=== PATIENT | female | born 1980 | race Caucasian/White ===

== ENCOUNTER 2017-06-04 08:54 | Emergency (ER) | payer OTHER ==
[~2017-06-04] VITALS: Ht 160 cm; Wt 70.3 kg
[~2017-06-04 08:54] MED LIST: ALPR-1 PO; IBUP600T22 PO; IBUP800T37 PO; KET10 PO; LOR5 PO; MULT1CAP41 PO; NAPR500T75 PO; OXYC1TAB54 PO; PAN20 PO; PENI-24 PO; PER PO; TRA50 PO; TRAM-627 PO; Work Note
--- NOTE | 2017-06-04 09:08 | ER Report ---
History and Physical Time Seen By MD: 09:07 Hx. of Stated Complaint: DIZZINESS, STRESS, AND HEADACHE. REPORTS THAT SHE HIT HER HEAD ON SUNDAY AND THEN STARTED HAVING THIS SYMPTOMS. HPI/ROS CHIEF COMPLAINT: headache and jaw pain after injury. HISTORY OF PRESENT ILLNESS: This is a 37 year old female. She fell and hit her right religion on a dresser. Has had headache, nausea and dizziness since then. She has some pain in jaw and religion, worsens with opening mouth or chewing. Also with cough, wheezing and shortness of breath. Congestion in nasal areas. No fevers or shills. No chest pain, but feels tight. No near syncope. No vertigo , more of an off balance feeling. Cough making the headache worse. Has some bruising on her arm where she says her tried to catch her. See nursing details for safety questions. Allergies: Coded Allergies: No Known Allergies (Verified Allergy, Mild, 06/04/17) Home Meds Active Scripts Guaifenesin/Codeine (GUAIFENESIN-CODEINE SYRUP) 5 Ml Syrp, 5 ML PO Q6H Y for COUGH, #120 ML 0 Refills Prov:JOMRA CRUZ MD 06/04/17 Discontinued Reported Medications Ibuprofen (IBUPROFEN) 800 Mg Tablet, 1 TAB PO BID, TAB 04/02/17 Discontinued Scripts Alprazolam 0.25 Mg Tab (XANAX 0.25 MG TAB) 0.25 Mg Tablet, 1 TAB PO TID Y for ANXIETY, #14 TAB Prov:FABIENNE MAYER MD 05/28/17 [Work Note] No Conflict Check Patient seen in the office today. May return to work on 04/04/17. Prov:TRUONG KAUFMAN DNP, FNP-BC 04/02/17 Penicillin V Potassium 500 Mg Tab (PENICILLIN V POTASSIUM 500 MG TAB) 500 Mg Tablet, 1 TAB PO BID, #20 TAB 0 Refills Prov:TRUONG KAUFMAN DNP, FNP-BC 04/02/17 Reviewed Nurses Notes: Yes Hx Smoking: Yes (1ppd) Smoking Status: Current: Every Day Smoker Hx Substance Use Disorder: No Hx Alcohol Use: No Constitutional Vital Sign - Last 24 Hours 06/04/17 06/04/17 06/04/17 06/04/17 08:58 09:00 09:30 09:30 Temp 97.9 Pulse 120 120 107 Resp 20 16 B/P (MAP) 124/98 Pulse Ox 90 95 97 O2 Delivery Room Air Room Air 06/04/17 06/04/17 06/04/17 06/04/17 09:30 09:36 10:00 10:30 Pulse 106 109 108 104 Resp 16 B/P (MAP) 113/79 (90) 124/75 (91) 111/60 (77) Pulse Ox 90 94 93 Physical Exam General Appearance: The patient is alert. No acute distress. Eyes: Pupils are equal, round. Reactive to light. No pallor, injection or icterus. Extraocular movements are intact. ENT: Mucous membranes are moist. Normal oral mucosa. Posterior oropharynx is normal. Normal tympanic membranes and canals. Neck: Supple and non tender. No lymphadenopathy. Respiratory: Breathing easily and unlabored. Lungs with wheezing throughout on expiration. Cardiovascular: Regular rate and rhythm. No murmurs, gallops or rubs. Normal capillary refill. Gastrointestinal: Abdomen is soft and non tender. Nondistended. Normal active bowel sounds. Neurological: Alert and oriented x3. No focal neurologic deficits Skin: Warm and dry. No rashes. DIFFERENTIAL DIAGNOSIS: After history and physical exam, differential diagnosis was considered for head injury, concussion Medical Decision Making Data Points Laboratory Hematology Test 06/04/17 09:21 Influenza Virus Type A (PCR) Negative (NEGATIVE) Influenza Virus Type B (PCR) Negative (NEGATIVE) Chemistry Test 06/04/17 09:21 Influenza Virus Type A (PCR) Negative (NEGATIVE) Influenza Virus Type B (PCR) Negative (NEGATIVE) EKG/Imaging Imaging Exam type: CHEST PA AND LAT History: cough, congestion Comparison: None. Findings: There is coarse peribronchial thickening bilaterally in addition to a streaky infiltrates in the lower lobes. There is no evidence of pleural effusions. Cardiac size is normal in size. IMPRESSION: 1. Coarse peribronchial thickening bilaterally most likely related to an acute peribronchial inflammatory process Streaky infiltrates also noted in the lower lobes. Report Dictated By: Juliana Nichols MD at 06/04/2017 10:21 AM EXAMINATION: CT head without intravenous contrast CT facial bones without IV contrast HISTORY: Trauma. TECHNIQUE: Head: Axial images were obtained from the skull base to the vertex without intravenous contrast. Sagittal and coronal reformatted images are also submitted. Face: Axial images were obtained from the superior aspect of the orbits through the inferior aspect of mandible. Coronal and sagittal reformatted images were obtained from the axial source data. One of the following dose optimization techniques was utilized in the performance of this exam: Automated exposure control; adjustment of the mA and/ or kV according to the patient's size; or use of an iterative reconstruction technique. Specific details can be referenced in the facility's radiology CT exam operational policy. COMPARISON: Noncontrast head CT dated 09/14/2012. FINDINGS: HEAD: Brain volume: Normal. Ventricles: Negative. Acute ischemic changes: None. Hemorrhage: None. Masses / edema: None. Patel-white: Negative. White matter: Negative. Vessels: Negative. Extra-axial: Negative. Calvarium / skull base: Negative. FACE: Soft Tissues: Mild bilateral supraorbital soft tissue swelling. Mandible / TMJ: Multiple missing teeth. No acute fracture. Cavity in the medial aspect of the right 1st mandibular molar. Maxillae / pterygoid plates: Multiple missing teeth. Cavity in the lateral aspect of the right 2nd maxillary molar. No acute fractures. Zygoma / zygomatic arches: Negative. Orbits: Negative. Nasal bones / nasal septum: Leftward nasal septal deviation posteriorly. Rightward nasal septal deviation anteriorly. No evidence of acute fracture. Frontal bones: Negative. Sinuses: Mucosal thickening in the ethmoid air cells. Otherwise negative. IMPRESSION: 1. Mild bilateral supraorbital soft tissue swelling. No evidence of acute fracture. 2. No acute intracranial abnormality. 3. Cavities involving the medial aspect of the right 1st mandibular molar and lateral aspect of the right 2nd maxillary molar. 4. Leftward nasal septal deviation posteriorly. Rightward nasal septal deviation anteriorly. Mucosal thickening in the ethmoid air cells. Report Dictated By: Lucas Dwyer MD at 06/04/2017 10:15 AM ED Course/Re-evaluation Clinical Indication for ER IV: IV Access ED Course Imaging negative. No sign of pneumonia. No head or facial fracture or bleed. Influenza negative. The patient will be off work for a few days. Symptoms of concussion, but also with upper respiratory infection as well. Decision to Disposition Date: Jun 04, 2017 Decision to Disposition Time: 10:39 Depart Departure Latest Vital Signs Vital Signs Date Time Temp Pulse Resp B/P (MAP) Pulse Ox O2 Delivery O2 Flow Rate FiO2 06/04/17 10:30 104 111/60 (77) 93 06/04/17 09:36 16 06/04/17 09:30 Room Air 06/04/17 08:58 97.9 Impression: Primary Impression: Upper respiratory infection Additional Impression: Concussion Condition: Improved Disposition: HOME OR SELF-CARE Referrals: TRUONG KAUFMAN DNP, PSYCHOLOGIST PERSONNEL-BC (PCP) New Scripts Guaifenesin/Codeine (GUAIFENESIN-CODEINE SYRUP) 5 Ml Syrp 5 ML PO Q6H Y for COUGH, #120 ML 0 Refills Prov: JOMAR CRUZ MD 06/04/17 Patient Instructions: Concussion (ED), Upper Respiratory Infection (ED) Additional Instructions: Concussion symptoms include: headache, nausea/vomiting, dizziness, difficulty concentrating, blurred vision. These symptoms can be mild or moderate. If symptoms become severe, follow-up evaluation is needed. Avoid any heavy physical activity and avoid any activities that may cause repeat head injury. Concussion symptoms can last for days or weeks. There is no way to predict how long these will last. Use Tylenol or Ibuprofen as needed for pain. Avoid any medicines with aspirin until symptoms improve. Guaifenesin with Codeine cough medication, 1 teaspoon every 4 hours as needed for cough. For the upper respiratory infection, you can use over the counter cold medications. Talk to you pharmacist about what medicines will work with your current prescriptions. Off work today and tomorrow. Rest and increase fluid intake. Problem Qualifiers Primary Impression: Upper respiratory infection URI type: unspecified viral URI Qualified Codes: J06.9 - Acute upper respiratory infection, unspecified Additional Impression: Concussion Encounter type: initial encounter Loss of consciousness presence/duration: without LOC Qualified Codes: S06.0X0A - Concussion without loss of consciousness, initial encounter JOMAR CRUZ MD Jun 04, 2017 09:08
[2017-06-04] MEDS ORDERED: ALBUTEROL/IPRATROPIUM 3 ML NEB NEB ONE (09:20)
--- NOTE | 2017-06-04 10:28 | RADIOLOGY IMAGING REPORT ---
[place] [facility] [place]: Mecca Prasad : 1980 MR: [id number] V: [id number] EXAM DATE: ORDERING PHYSICIAN: JOMAR CRUZ TECHNOLOGIST: Location: [facility] [place] Patient: Mecca Prasad : 1980 Visit/Account:[id number] Date of Sevice: 06/04/2017 EXAMINATION: CT head without intravenous contrast CT facial bones without IV contrast HISTORY: Trauma. TECHNIQUE: Head: Axial images were obtained from the skull base to the vertex without intravenous contrast. Sa gittal and coronal reformatted images are also submitted. Face: Axial images were obtained from the superior aspect of the orbits through the inferior aspect of mandible. Coronal and sagittal reformatted images were obtained from the axial source data. One of the following dose optimization techniques was utilized in the performance of this exam: Autom ated exposure control; adjustment of the mA and/or kV according to the patient's size; or use of an i terative reconstruction technique. Specific details can be referenced in the facility's radiology C T exam operational policy. COMPARISON: Noncontrast head CT dated 09/14/2012. FINDINGS: HEAD: Brain volume: Normal. Ventricles: Negative. Acute ischemic changes: None. Hemorrhage: None. Masses / edema: None. Patel-white: Negative. White matter: Negative. Vessels: Negative. Extra-axial: Negative. Calvarium / skull base: Negative. FACE: Soft Tissues: Mild bilateral supraorbital soft tissue swelling. Mandible / TMJ: Multiple missing teeth. No acute fracture. Cavity in the medial aspect of the right 1st mandibular molar. Maxillae / pterygoid plates: Multiple missing teeth. Cavity in the lateral aspect of the right 2nd m axillary molar. No acute fractures. Zygoma / zygomatic arches: Negative. Orbits: Negative. Nasal bones / nasal septum: Leftward nasal septal deviation posteriorly. Rightward nasal septal ross ation anteriorly. No evidence of acute fracture. Frontal bones: Negative. Sinuses: Mucosal thickening in the ethmoid air cells. Otherwise negative. IMPRESSION: 1. Mild bilateral supraorbital soft tissue swelling. No evidence of acute fracture. 2. No acute intracranial abnormality. 3. Cavities involving the medial aspect of the right 1st mandibular molar and lateral aspect of the right 2nd maxillary molar. 4. Leftward nasal septal deviation posteriorly. Rightward nasal septal deviation anteriorly. Mucos al thickening in the ethmoid air cells. Report Dictated By: Lucas Dwyer MD at 06/04/2017 10:15 AM Report E-Signed By: Lucas Dwyer MD at 06/04/2017 10:23 AM WSN:[id number]
--- NOTE | 2017-06-04 10:28 | RADIOLOGY IMAGING REPORT ---
FACILITY: [facility] PATIENT NAME: Mecca Prasad : 1980 MR: [id number] V: [id number] EXAM DATE: ORDERING PHYSICIAN: JOMAR CRUZ TECHNOLOGIST: Location: [facility] - [place] Patient: Mecca Prasad : 1980 Visit/Account:[id number] Date of Sevice: 06/04/2017 EXAMINATION: CT head without intravenous contrast CT facial bones without IV contrast HISTORY: Trauma. TECHNIQUE: Head: Axial images were obtained from the skull base to the vertex without intravenous contrast. Sa gittal and coronal reformatted images are also submitted. Face: Axial images were obtained from the superior aspect of the orbits through the inferior aspect of mandible. Coronal and sagittal reformatted images were obtained from the axial source data. One of the following dose optimization techniques was utilized in the performance of this exam: Autom ated exposure control; adjustment of the mA and/or kV according to the patient's size; or use of an i terative reconstruction technique. Specific details can be referenced in the facility's radiology C T exam operational policy. COMPARISON: Noncontrast head CT dated 09/14/2012. FINDINGS: HEAD: Brain volume: Normal. Ventricles: Negative. Acute ischemic changes: None. Hemorrhage: None. Masses / edema: None. Patel-white: Negative. White matter: Negative. Vessels: Negative. Extra-axial: Negative. Calvarium / skull base: Negative. FACE: Soft Tissues: Mild bilateral supraorbital soft tissue swelling. Mandible / TMJ: Multiple missing teeth. No acute fracture. Cavity in the medial aspect of the right 1st mandibular molar. Maxillae / pterygoid plates: Multiple missing teeth. Cavity in the lateral aspect of the right 2nd m axillary molar. No acute fractures. Zygoma / zygomatic arches: Negative. Orbits: Negative. Nasal bones / nasal septum: Leftward nasal septal deviation posteriorly. Rightward nasal septal ross ation anteriorly. No evidence of acute fracture. Frontal bones: Negative. Sinuses: Mucosal thickening in the ethmoid air cells. Otherwise negative. IMPRESSION: 1. Mild bilateral supraorbital soft tissue swelling. No evidence of acute fracture. 2. No acute intracranial abnormality. 3. Cavities involving the medial aspect of the right 1st mandibular molar and lateral aspect of the right 2nd maxillary molar. 4. Leftward nasal septal deviation posteriorly. Rightward nasal septal deviation anteriorly. Mucos al thickening in the ethmoid air cells. Report Dictated By: Lucas Dwyer MD at 06/04/2017 10:15 AM Report E-Signed By: Lucas Dwyer MD at 06/04/2017 10:23 AM WSN:[id number]
--- NOTE | 2017-06-04 10:29 | RADIOLOGY IMAGING REPORT ---
FACILITY: [facility] PATIENT NAME: Mecca Prasad : 1980 MR: [id number] V: [id number] EXAM DATE: ORDERING PHYSICIAN: JOMAR CRUZ [place]CHNOLOGIST: [place] [facility] [place]cca Prasad : 1980 Visit/Account:[id number] Date of Sevice: 06/04/2017 Exam type: CHEST PA AND LAT History: cough, congestion Comparison: None. Findings: There is coarse peribronchial thickening bilaterally in addition to a streaky infiltrates in the lowe r lobes. There is no evidence of pleural effusions. Cardiac size is normal in size. IMPRESSION: 1. Coarse peribronchial thickening bilaterally most likely related to an acute peribronchial inflamm atory process Streaky infiltrates also noted in the lower lobes. Report Dictated By: Juliana Nichols MD at 06/04/2017 10:21 AM Report E-Signed By: Juliana Nichols MD at 06/04/2017 10:22 AM WSN:[email or web address]
[2017-06-04 10:30] VITALS: BP 111/60
[2017-06-04] MEDS ORDERED: ROBC PO (10:44)
== END 2017-06-04 10:45 | disposition home or self-care (01) ==
LOC: ER 08:54
DX: J06.9 Acute upper respiratory infection, unspecified (principal); S06.0X0A Concussion without loss of consciousness, initial encounter
CPT/HCPCS: 70450; 70486; 71046; 87502; 94640; 99283; J7620

== ENCOUNTER → 2017-06-07 | Outpatient (CLI) | payer OTHER ==
[~2017-06-07] MED LIST changes: +ALBU8.5H IH; +IPRA3AMP21 IH; +METH4TAB66 PO; +ROBC PO
--- NOTE | 2017-06-07 10:53 | RADIOLOGY IMAGING REPORT ---
FACILITY: [facility] PATIENT NAME: Mecca Prasad : 1980 MR: [id number] V: [id number] EXAM DATE: ORDERING PHYSICIAN: CUCO AMADOR TECHNOLOGIST: [place] [facility] [place] Mecca Prasad : 1980 Visit/Account:[id number] Date of Sevice: 06/07/2017 Exam type: CHEST PA AND LAT History: Upper respiratory infection, wheezing, tightness of chest, smoker Comparison: June 04, 2017. Findings: There is persistent peribronchial thickening noted bilaterally. No evidence of lobar infiltrates or pleural effusions. The cardiac silhouette is normal in size. IMPRESSION: 1. Persistent coarse peribronchial thickening which may be related to an acute peribronchial inflamm atory process. Chronic bronchitis is also in the differential diagnosis given the smoking history Report Dictated By: Juliana Nichols MD at 06/07/2017 10:47 AM Report E-Signed By: Juliana Nichols MD at 06/07/2017 10:48 AM WSN:[email or web address]
== END ==
LOC: RAD 09:15
PROVIDERS: ATTEND Internal Medicine
DX: R91.8 Other nonspecific abnormal finding of lung field (principal)
CPT/HCPCS: 71046

== ENCOUNTER 2017-06-17 09:00 | Emergency (ER) | payer OTHER ==
[~2017-06-17] VITALS: Ht 160 cm; Wt 70.3 kg
[2017-06-17] MEDS ORDERED: IBUP800T37 PO (09:05)
[2017-06-17] MEDS ORDERED: IBUP600T22 PO (09:05)
[2017-06-17] MEDS ORDERED: DICL25TA9 PO (09:34)
[2017-06-17 09:35] VITALS: BP 118/57
--- NOTE | 2017-06-17 09:35 | ER Report ---
History and Physical Time Seen By MD: 09:09 Hx. 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 she knows she was gripping the handle of the mop tightly and that her fingers turn white. This morning she had edema in the left hand which is nearly resolved. Just as pain extending up to her left elbow. No fevers chills nausea vomiting no skin redness or rashes. No trauma mechanism. No other concerns or complaints. REVIEW OF SYSTEMS: Respiratory: No cough, no dyspnea. Cardiovascular: No chest pain, no palpitations. Gastrointestinal: No vomiting, no abdominal pain. Musculoskeletal: No back pain. Allergies: Coded Allergies: No Known Allergies (Verified Allergy, Mild, 06/17/17) Home Meds Reported Medications Ibuprofen (IBUPROFEN) 800 Mg Tablet, 4 TAB PO Q8H, TAB 06/17/17 Discontinued Reported Medications Ibuprofen (IBUPROFEN) 600 Mg Tablet, 1 TAB PO Q6H, TAB 06/17/17 Discontinued Scripts Albuterol Sulfate 90 Mcg/Act (PROAIR HFA 90 MCG/ACT) 8.5 Gm Hfa.aer.ad, 2 PUFF IH Q4-6H Y for tightness in chest/ wheezing, #1 INHALER 0 Refills Prov:CUCO AMADOR MD 06/07/17 Methylprednisolone (METHYLPREDNISOLONE) 4 Mg Tab.ds.pk, 4 MG PO DIRECTED, #1 PACK Prov:CUCO AMADOR MD 06/07/17 Guaifenesin/Codeine (GUAIFENESIN-CODEINE SYRUP) 5 Ml Syrp, 5 ML PO Q6H Y for COUGH, #120 ML 0 Refills Prov:CUCO AMADOR MD 06/07/17 Hx Smoking: Yes (1ppd) Smoking Status: Current: Every Day Smoker Hx Substance Use Disorder: No Hx Alcohol Use: No Constitutional Vital Sign - Last 24 Hours 06/17/17 09:06 Temp 98.2 Pulse 102 Resp 16 B/P (MAP) 128/56 Pulse Ox 97 O2 Delivery Room Air Physical Exam General Appearance: The patient is alert, has no immediate need for airway protection and no current signs of toxicity. She appears anxious but is in no acute distress otherwise Eyes: Pupils equal and round no injection. Respiratory: Chest is non tender, lungs are clear to auscultation. Cardiac: regular rate and rhythm [ ] Gastrointestinal: Abdomen is soft and non tender, no masses, bowel sounds normal. Musculoskeletal: Neck: Neck is supple and non tender. Extremities have full range of motion and are non tender. Phalen's test negative. No abnormal sensation with tapping over the carpal tunnel. Cap refill in left upper extremity is within normal limits. Skin: No rashes or lesions. [ ] DIFFERENTIAL DIAGNOSIS: After history and physical exam differential diagnosis was considered for Raynaud's phenomenon, carpal tunnel syndrome, chronic overuse injury no signs of fracture or dislocation Medical Decision Making ED Course/Re-evaluation ED Course Plan of care discussed and agreed upon outpatient medication use follow-up and reasons to return were discussed. We'll hold off on calcium channel blockers at this time as she is only had one episode this may be more related to chronic overuse injury we'll start with NSAIDs. Decision to Disposition Date: Jun 17, 2017 Decision to Disposition Time: 09:23 Depart Departure Latest Vital Signs Vital Signs Date Time Temp Pulse Resp B/P (MAP) Pulse Ox O2 Delivery O2 Flow Rate FiO2 06/17/17 09:06 98.2 102 16 128/56 97 Room Air Impression: Primary Impression: Swelling of left hand Condition: Improved Disposition: HOME OR SELF-CARE Referrals: TRUONG KAUFMAN DNP, MEDICAL INSURANCE CLAIMS SPECIALIST-BC (PCP) New Scripts Diclofenac Sodium (DICLOFENAC SODIUM) 25 Mg Tablet. 25 MG PO TID for PAIN for 10 Days, #30 TAB Prov: ANN MARIE HERNANDEZ MD 06/17/17 Patient Instructions: Raynaud Disease (ED), Tendinitis (ED) Additional Instructions: Keep her hands warm at all times. Change positions while at work to avoid overuse of extremities. Follow-up with your doctor in a timely fashion for further evaluation as needed ANN MARIE HERNANDEZ MD Jun 17, 2017 09:35
== END 2017-06-17 09:38 | disposition home or self-care (01) ==
LOC: ER 09:00
DX: M79.89 Other specified soft tissue disorders (principal); Y93.E5 Activity, floor mopping and cleaning
CPT/HCPCS: 99282

== ENCOUNTER 2017-10-26 16:40 | Emergency (ER) | payer SELFPAY ==
[~2017-10-26 16:40] MED LIST changes: +DICL25TA9 PO
--- NOTE | 2017-10-26 16:45 | ER Report ---
History and Physical Time Seen By MD: 16:45 HPI/ROS CHIEF COMPLAINT: Right arm pain HISTORY OF PRESENT ILLNESS: This is a 37-year-old female who presents to the emergency department for right forearm pain and possible infection. Patient states that last night she noticed her right forearm began to itch, then today the right forearm began to increase in size with redness and swelling and pain. Patient became nervous and decided to come into the emergency department for further evaluation. Patient denies aches, chills, nausea, vomiting, diarrhea, fevers. Patient does have a history of IV drug use however she states she's not been using IV drugs for quite some time. REVIEW OF SYSTEMS: Constitutional: No fever, no chills. Eyes: No discharge. ENT: No sore throat. Cardiovascular: No chest pain, no palpitations. Respiratory: No cough, no shortness of breath. Gastrointestinal: No abdominal pain, no vomiting. Genitourinary: No hematuria. Musculoskeletal: As above. Skin: As above. Neurological: No headache. Allergies: Coded Allergies: No Known Allergies (Verified Allergy, Mild, 10/26/17) Home Meds Active Scripts Cephalexin 500 Mg Tab (KEFLEX 500 MG TAB) 500 Mg Tablet, 500 MG PO Q6H for 10 Days, #40 TAB 0 Refills Prov:BECKY CALDERON SURGICAL PRODUCT SALES CONSULTANT-BC 10/26/17 Discontinued Reported Medications Ibuprofen (IBUPROFEN) 800 Mg Tablet, 4 TAB PO Q8H, TAB 06/17/17 Discontinued Scripts Diclofenac Sodium (DICLOFENAC SODIUM) 25 Mg Tablet.dr, 25 MG PO TID for PAIN for 10 Days, #30 TAB Prov:ANN MARIE HERNANDEZ MD 06/17/17 Past Medical/Surgical History Patient has a past medical and surgical history of seizures, GERD, endometriosis , dental surgery, hypothyroidism, IV drug use. Reviewed Nurses Notes: Yes Hx Smoking: Yes (1ppd) Smoking Status: Current: Every Day Smoker Hx Substance Use Disorder: No Hx Alcohol Use: No Constitutional Vital Sign - Last 24 Hours 10/26/17 10/26/17 10/26/17 10/26/17 16:43 16:44 16:54 17:00 Temp 98.2 Pulse 117 Resp 20 B/P (MAP) 114/80 114/80 (91) 107/79 (88) 112/83 (93) Pulse Ox 95 O2 Delivery Room Air 10/26/17 10/26/17 17:30 18:00 B/P (MAP) 109/77 (88) 110/73 (85) Physical Exam General Appearance: The patient is alert, has no immediate need for airway protection and no signs of toxicity. Eyes: Pupils equal and round no pallor or injection. ENT, Mouth: Mucous membranes are moist. Respiratory: There are no retractions, lungs are clear to auscultation. Cardiovascular: Regular rate and rhythm. Gastrointestinal: Abdomen is soft and non tender, no masses, bowel sounds normal. Neurological: Alert and oriented 4. Moving all extremities. Following all commands. No focal neuro deficits. Skin: Hot and dry right forearm. Cellulitic appearing right forearm, erythema. Several small bruises to the right forearm. The veins to the right forearm have a ropey feel, which does illicit pain with light touch. Musculoskeletal: Neck is supple non tender. Extremities are nontender, nonswollen and have full range of motion. DIFFERENTIAL DIAGNOSIS: After history and physical exam differential diagnosis was considered for DVT, cellulitis and phlebitis. Medical Decision Making EKG/Imaging Imaging Location: [facility] [place] Patient: Mecca Prasad : 1980 Visit/Account:[id number] Date of [facility]: 10/26/2017 Right upper extremity venous Doppler duplex ultrasound scan. HISTORY: Pain, rule out DVT, insect bite. COMPARISON: None. A venous color flow Doppler duplex ultrasound scan with spectral analysis was performed on the upper extremity. The basilic vein, brachial veins, cephalic vein, axillary vein and internal jugular vein are unremarkable. The lateral aspect of the subclavian vein is unremarkable. The medial aspect of the subclavian vein, the innominate vein, and the superior vena cava are obscured. Note that Doppler ultrasound is insensitive for evaluating the central veins of the chest. Soft tissue swelling is present in the medial aspect of the right upper forearm. IMPRESSION: Soft tissue swelling. Otherwise negative for acute deep vein thrombosis. Report Dictated By: Gianluca Fragoso MD at 10/26/2017 6:06 PM Report E-Signed By: Gianluca Fragoso MD at 10/26/2017 6:09 PM WSN:[id number] ED Course/Re-evaluation ED Course Patient was admitted to room. A history and physical were obtained. Differential diagnoses are considered. I was concerned that the patient had a DVT as the pains were very ropey, she also has a history of IV drug use however patient states it's been sometimes that she has used IV drugs. There were however several small bruises to the right forearm surrounding the cellulitis therefore we proceeded with an ultrasound which was negative for DVT. I did review these results with the patient. I did tell her that we can try oral antibiotics with the understanding that if the infection become significant worse and she is to return immediately for IV antibiotics. Patient does express understanding. The Keflex prescription was sent to the patient's pharmacy. The patient had other questions or concerns at this time and was discharged home. Decision to Disposition Date: Oct 26, 2017 Decision to Disposition Time: 18:15 Depart Departure Latest Vital Signs Vital Signs Date Time Temp Pulse Resp B/P (MAP) Pulse Ox O2 Delivery O2 Flow Rate FiO2 10/26/17 18:00 110/73 (85) 10/26/17 16:43 98.2 117 20 95 Room Air Impression: Primary Impression: Cellulitis Condition: Improved Disposition: HOME OR SELF-CARE Referrals: TRUONG KAUFMAN DNP, SURGICAL PRODUCT SALES CONSULTANT-BC (PCP) New Scripts Cephalexin 500 Mg Tab (KEFLEX 500 MG TAB) 500 Mg Tablet 500 MG PO Q6H for 10 Days, #40 TAB 0 Refills Prov: BECKY CALDERON [facility]-BC 10/26/17 Patient Instructions: Cellulitis (ED) Additional Instructions: Drink plenty of water. Get plenty of rest. Take the antibiotics as prescribed until the course is complete. Continue to monitor the skin infection, I would anticipate no real improvement in the next 24-48 hours however if there is a significant change and the infection appears worse please return to the emergency department for worsening symptoms. Follow-up with your primary care provider as needed. Problem Qualifiers Primary Impression: Cellulitis Site of cellulitis: extremity Site of cellulitis of extremity: upper extremity Laterality: right Qualified Codes: L03.113 - Cellulitis of right upper limb BECKY CALDERON [facility]-BC Oct 26, 2017 16:45
[2017-10-26 18:00] VITALS: BP 110/73
--- NOTE | 2017-10-26 18:12 | RADIOLOGY IMAGING REPORT ---
FACILITY: [facility] - [place] PATIENT NAME: Mecca Prasad : 1980 MR: [id number] V: [id number] EXAM DATE: ORDERING PHYSICIAN: BECKY CALDERON TECHNOLOGIST: Location: [facility] Patient: Mecca Prasad : 1980 Visit/Account:[id number] Date of Sevice: 10/26/2017 Right upper extremity venous Doppler duplex ultrasound scan. HISTORY: Pain, rule out DVT, insect bite. COMPARISON: None. A venous color flow Doppler duplex ultrasound scan with spectral analysis was performed on the upper extremity. The basilic vein, brachial veins, cephalic vein, axillary vein and internal jugular vein are unremarkable. The lateral aspect of the subclavian vein is unremarkable. The medial aspect of t he subclavian vein, the innominate vein, and the superior vena cava are obscured. Note that Doppler ultrasound is insensitive for evaluating the central veins of the chest. Soft tissu e swelling is present in the medial aspect of the right upper forearm. IMPRESSION: Soft tissue swelling. Otherwise negative for acute deep vein thrombosis. Report Dictated By: Gianluca Fragoso MD at 10/26/2017 6:06 PM Report E-Signed By: Gianluca Fragoso MD at 10/26/2017 6:09 PM WSN:[id number]
[2017-10-26] MEDS ORDERED: CEPH500T7 PO (18:17)
== END 2017-10-26 18:25 | disposition home or self-care (01) ==
LOC: ER 16:50
DX: L03.113 Cellulitis of right upper limb (principal)
CPT/HCPCS: 99284

== ENCOUNTER 2017-10-30 14:00 | Emergency (ER) | payer SELFPAY ==
[~2017-10-30 14:00] MED LIST changes: +CEPH500T7 PO
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
[2017-10-30] MEDS ORDERED: APAP/HYDROCODONE 325/5 TAB PO ONE (14:10)
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
[2017-10-30] MEDS ORDERED: HYDR-385 PO (15:51)
[2017-10-30] MEDS ORDERED: CEPH500T7 PO (15:54)
[2017-10-30 16:00] VITALS: BP 124/88
== END 2017-10-30 16:02 | disposition home or self-care (01) ==
LOC: ER 14:04
DX: S02.2XXA Fracture of nasal bones, initial encounter for closed fracture (principal); Y04.2XXA Assault by strike against or bumped into by another person, initial encounter; S09.90XA Unspecified injury of head, initial encounter
CPT/HCPCS: 70450; 70486; 72125; 81025; 99284

== ENCOUNTER 2017-11-13 06:22 | Emergency (ER) | payer SELFPAY ==
[~2017-11-13 06:22] MED LIST changes: +HYDR-385 PO; +IPRA3AMP10 IH; -IPRA3AMP21 IH
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
[2017-11-13] MEDS ORDERED: ASPIRIN 81 MG CHEW PO ONE (06:45)
[2017-11-13] MEDS ORDERED: KETOROLAC 30 MG/ML VIAL IVP ONE (06:45)
[2017-11-13] MEDS ORDERED: fentaNYL CITR 100 MCG/2 ML AMP IVP ONE (06:45)
[2017-11-13 06:49] LABS: PLATELET COUNT, AUTOMATED 217 K/uL (150-450)
[2017-11-13 07:00] LABS: INR 0.92
--- NOTE | 2017-11-13 07:15 | EKG ---
FACILITY: [facility] PATIENT NAME: ROXANE BANEGAS : [id number] MR: [id number] V: [id number] EXAM DATE: ORDERING PHYSICIAN: OSVALDO ANDERSON TECHNOLOGIST: RAMSEY Ayala Reason : CP Blood Pressure : / mmHG Vent. Rate : 121 BPM Atrial Rate : 121 BPM P-R Int : 134 ms QRS Dur : 120 ms QT Int : 334 ms P-R-T Axes : 067 -37 070 degrees QTc Int : 474 ms Sinus tachycardia Left bundle branch block When compared with ECG of 10-AUG-2016 15:35, QRS duration has increased Confirmed by MARY LOU ROWE ([id number]) on 11/13/2017 2:02:24 PM Referred By: Confirmed By:MARY LOU ROWE
[2017-11-13] MEDS ORDERED: IOPAMIDOL 76% 100 ML INFUS BTL 100 ML ONE (07:16)
[2017-11-13] MEDS ORDERED: NS 0.9% 25 ML BAG 50 ML ONE (07:16)
--- NOTE | 2017-11-13 07:30 | RADIOLOGY IMAGING REPORT ---
FACILITY: [facility] [place] PATIENT NAME: Mecca Prasad : 1980 MR: [id number] V: [id number] EXAM DATE: ORDERING PHYSICIAN: OSVALDO ANDERSON TECHNOLOGIST: [place] [facility] [place]: Mecca Prasad : 1980 Visit/Account:[id number] Date of Sevice: 11/13/2017 CHEST PA AND LAT HISTORY: Chest pain COMPARISON: Chest x-ray earlier the same day FINDINGS: Cardiomediastinal contours: Normal Lungs and pleura: Chronic bronchial thickening. No consolidation or edema. No pneumothorax. Bones/soft tissues: Normal Other findings: None significant IMPRESSION: 1. Chronic bronchial thickening. Report Dictated By: Gualberto Severino MD at 11/13/2017 7:17 AM Report E-Signed By: Gualberto Severino MD at 11/13/2017 7:27 AM WSN:[id number]
[2017-11-13] MEDS ORDERED: NS(*) 0.9% 1000 ML BAG 1,000 ML IV ONE (07:50)
--- NOTE | 2017-11-13 07:56 | RADIOLOGY IMAGING REPORT ---
FACILITY: [facility] PATIENT NAME: Mecca Prasad : 1980 MR: [id number] V: [id number] EXAM DATE: ORDERING PHYSICIAN: OSVALDO ANDERSON TECHNOLOGIST: Location: [facility] Patient: Mecca Prasad : 1980 Visit/Account:[id number] Date of Sevice: 11/13/2017 CTA CHEST WW/O CNTR (PULM ANG) HISTORY: R sided sharp CP, elevated d-dimer TECHNIQUE: CTA chest with intravenous contrast attention to pulmonary arteries. Sagittal, coronal a nd slab 3D MIP coronal reconstructed images were also created for further evaluation and interpretati on. CONTRAST: Iopamidol 85 mls. One of the following dose optimization techniques was utilized in the performance of this exam: Autom ated exposure control; adjustment of the mA and/or kV according to the patient's size; or use of an i terative reconstruction technique. Specific details can be referenced in the facility's radiology C T exam operational policy. COMPARISON: Chest x-ray June 07, 2017. FINDINGS: Heart/coronary vessels: The heart size is normal. There is no pericardial effusion. Pulmonary arteries: There is no filling defect in the pulmonary vessels to suggest pulmonary embolus. Thoracic aorta: Unremarkable. Mediastinum: No findings of lymphadenopathy, mass or hiatal hernia. Lymph nodes: No findings of axillary lymphadenopathy. Lungs/pleura: There is minimal linear density in the left lung base suggesting atelectasis or scar. There is no infiltrate or mass. There is no pleural effusion. Visualized upper abdomen: No findings of a mass. Bones/soft tissues: No fracture noted. IMPRESSION: 1. No findings of pulmonary embolus. 2. No findings of an infiltrate or pleural effusion. Report Dictated By: Jamil Murray MD at 11/13/2017 7:47 AM Report E-Signed By: Jamil Murray MD at 11/13/2017 7:52 AM WSN:[email or web address]
[2017-11-13 09:20] VITALS: BP 106/82
== END 2017-11-13 09:20 | disposition home or self-care (01) ==
LOC: ER 06:37
DX: R07.89 Other chest pain (principal); F17.210 Nicotine dependence, cigarettes, uncomplicated
CPT/HCPCS: 36415; 71046; 71275; 84484; 84703; 85025; 85379; 85610; 85730; 93005; 96361; 96374; 96375; 99284; J1885; J3010; J7030; Q9967; 82040; 82247; 82310; 82374; 82435; 82565; 82947; 84075; 84132; 84155; 84295; 84450; 84460; 84520

== ENCOUNTER 2018-11-25 06:20 | Emergency (ER) | payer SELFPAY ==
[2018-11-25] MEDS ORDERED: NALT380S4 PO (06:33)
--- NOTE | 2018-11-25 07:19 | ER Report ---
History and Physical Time Seen By MD: 07:16 Hx. of Stated Complaint: PATIENT STATES THAT SHE HAS BILATERAL PAIN IN BOTH HER FEET; STATES THAT SHE THINKS THAT SHE HAS "PLANTAR FASCIITIS"; STATES THAT IT HAS BEEN GOING ON FOR A "WHILE" AND PAIN HAS BEEN GETTING WORSE HPI/ROS CHIEF COMPLAINT: Bilateral lower extremity pain, duration 1-1/2 months HISTORY OF PRESENT ILLNESS: Patient is a 38-year-old female here with complaints of bilateral lower extremity pain and foot pain for the past 1-1/2 months without acute injury. There are no bony abnormalities at time of evaluation, patient is neurovascularly intact, capillary refill less than 3 seconds. REVIEW OF SYSTEMS: Constitutional: No fever, no chills. Musculoskeletal: Bilateral distal lower extremity pain Skin: No rashes. Neurological: Neurovascular exam intact in distal lower extremities Allergies: Coded Allergies: No Known Allergies (Verified Allergy, Mild, 10/30/17) Home Meds Active Scripts Meloxicam (MOBIC) 15 Mg Tablet, 15 MG PO QDAY, #14 TAB Prov:LOUISE NORTON DO 11/25/18 Tramadol Hcl (TRAMADOL HCL) 50 Mg Tablet, 50 MG PO Q6H PRN for PAIN, #6 TAB 0 Refills Prov:LOUISE NORTON DO 11/25/18 Reported Medications Naltrexone Microspheres (VIVITROL) 380 Mg Hyun.er.rec, 380 MG PO QAM 11/25/18 Discontinued Scripts Hydrocodone Bit/Acetaminophen (HYDROCODON-ACETAMINOPHEN 5-325) 1 Each Tablet, 1- 2 EACH PO Q6H, #12 TAB Prov:NIKKO POSEY PROFESSOR OF MUSICOLOGY-C 10/30/17 Cephalexin 500 Mg Tab (KEFLEX 500 MG TAB) 500 Mg Tablet, 500 MG PO Q6H for 10 Days, #40 TAB 0 Refills Prov:BECKY CALDERON PROFESSOR OF RHETORIC-BC 10/26/17 Hx Smoking: Yes (1ppd) Smoking Status: Current: Every Day Smoker Hx Substance Use Disorder: No Hx Alcohol Use: No Constitutional Vital Sign - Last 24 Hours 11/25/18 11/25/18 11/25/18 06:25 07:00 07:30 Temp 97.6 Pulse 95 85 74 Resp 17 B/P (MAP) 142/98 128/84 (99) 117/80 (92) Pulse Ox 94 93 90 O2 Delivery Room Air Physical Exam General Appearance: The patient is alert, has no immediate need for airway protection and no signs of toxicity. No acute distress Neurological: Neurovascular exam intact Skin: Warm and dry, no rashes. Musculoskeletal: Distal lower extremities tender on palpation with no bony abnormalities or edema DIFFERENTIAL DIAGNOSIS: After history and physical exam differential diagnosis was considered for contusion, sprain, cellulitis, fracture Medical Decision Making EKG/Imaging Imaging Please see official radiology report for details ED Course/Re-evaluation ED Course Patient is a 38-year-old female here with complaints of distal bilateral lower extremity pain which has been present for approximately 1.5 months. X-ray imaging showed no acute bony abnormalities or fractures. Patient's distal lower extremity is wrapped in [place] bandages, patient was given crutches for ambulation. Capillary refill less than 2 seconds in both extremities. PCP follow-up rec ommended, return precautions provided Decision to Disposition Date: Nov 25, 2018 Decision to Disposition Time: 08:25 Depart Departure Latest Vital Signs Vital Signs Date Time Temp Pulse Resp B/P (MAP) Pulse Ox O2 Delivery O2 Flow Rate FiO2 11/25/18 07:30 74 117/80 (92) 90 11/25/18 06:25 97.6 17 Room Air Impression: Primary Impression: Foot pain, bilateral Condition: Improved Disposition: HOME OR SELF-CARE Referrals: TRUONG KAUFMAN DNP, PROFESSOR OF RHETORIC-BC (PCP) New Scripts Meloxicam (MOBIC) 15 Mg Tablet 15 MG PO QDAY, #14 TAB Prov: LOUISE NORTON DO 11/25/18 Tramadol Hcl (TRAMADOL HCL) 50 Mg Tablet 50 MG PO Q6H PRN for PAIN, #6 TAB 0 Refills Prov: LOUISE NORTON DO 11/25/18 Patient Instructions: Musculoskeletal Pain (ED) Additional Instructions: Please follow up with orthopedics. Please keep the [place] wraps in place. Please return promptly if you develop worsening pain, fevers, chills. You may take Tylenol or ibuprofen as needed for primary pain control. You may take tramadol 1 tablet every 6-8 hours as needed for breakthrough pain control. LOUISE NORTON DO Nov 25, 2018 07:19
[2018-11-25 07:30] VITALS: BP 117/80
--- NOTE | 2018-11-25 07:34 | RADIOLOGY IMAGING REPORT ---
FACILITY: [facility] PATIENT NAME: Mecca Prasad : 1980 MR: [id number] V: [id number] EXAM DATE: ORDERING PHYSICIAN: LOUISE NORTON TECHNOLOGIST: Location: [facility] - [place] Patient: Mecca Prasad : 1980 Visit/Account:[id number] Date of Sevice: 11/25/2018 Technique: ANKLE 3 VIEW MIN LEFT HISTORY: SWELLING Comparison studies: None FINDINGS: There is no acute fracture. The ankle mortise is congruent. No ankle joint effusion. IMPRESSION: 1. No acute osseous process within the left ankle. Report Dictated By: Berto Pollack DO at 11/25/2018 7:25 AM Report E-Signed By: Berto Pollack DO at 11/25/2018 7:26 AM WSN:[email or web address]
--- NOTE | 2018-11-25 07:35 | RADIOLOGY IMAGING REPORT ---
FACILITY: [facility] - [place] PATIENT NAME: Mecca Prasad : 1980 MR: [id number] V: [id number] EXAM DATE: ORDERING PHYSICIAN: LOUISE NORTON TECHNOLOGIST: Location: [facility] Patient: Mecca Prasad : 1980 Visit/Account:[id number] Date of Sevice: 11/25/2018 Technique: FOOT 3 VIEW LEFT HISTORY: SWELLING Comparison studies: None FINDINGS: There is no acute fracture. The alignment of the left foot is preserved. Mild soft tissue swelling overlies the dorsal aspect of the foot. IMPRESSION: 1. No acute osseous process within the left foot. Report Dictated By: Berto Pollack DO at 11/25/2018 7:26 AM Report E-Signed By: Berto Pollack DO at 11/25/2018 7:27 AM WSN:[email or web address]
--- NOTE | 2018-11-25 07:35 | RADIOLOGY IMAGING REPORT ---
FACILITY: [facility] [place] PATIENT NAME: Mecca Prasad : 1980 MR: [id number] V: [id number] EXAM DATE: ORDERING PHYSICIAN: LOUISE NORTON TECHNOLOGIST: Location: [facility] Patient: Mecca Prasad : 1980 Visit/Account:[id number] Date of Sevice: 11/25/2018 Technique: ANKLE 3 VIEW MIN RIGHT HISTORY: SWELLING Comparison studies: None FINDINGS: There is no acute fracture. The ankle mortise is preserved. No ankle joint effusion. IMPRESSION: 1. No acute osseous process within the right ankle. Report Dictated By: Berto Pollack DO at 11/25/2018 7:27 AM Report E-Signed By: Berto Pollack DO at 11/25/2018 7:28 AM WSN:[email or web address]
--- NOTE | 2018-11-25 07:35 | RADIOLOGY IMAGING REPORT ---
FACILITY: [facility] - [place] PATIENT NAME: Mecca Prasad : 1980 MR: [id number] V: [id number] EXAM DATE: ORDERING PHYSICIAN: LOUISE NROTON TECHNOLOGIST: Location: [facility] Patient: Mecca Prasad : 1980 Visit/Account:[id number] Date of Sevice: 11/25/2018 Technique: FOOT 3 VIEWS RIGHT HISTORY: SWELLING Comparison studies: None FINDINGS: There is no acute fracture. The alignment of the right foot is preserved. Soft tissues ar e unremarkable. IMPRESSION: 1. No acute osseous process within the right foot. Report Dictated By: Berto Pollack DO at 11/25/2018 7:28 AM Report E-Signed By: Berto Pollack DO at 11/25/2018 7:28 AM WSN:[email or web address]
[2018-11-25] MEDS ORDERED: TRAM-420 PO (08:31)
[2018-11-25] MEDS ORDERED: MELO-150 PO (08:40)
== END 2018-11-25 08:46 | disposition home or self-care (01) ==
LOC: ER 07:24
DX: M79.672 Pain in left foot (principal); M79.671 Pain in right foot; F17.210 Nicotine dependence, cigarettes, uncomplicated; Z79.899 Other long term (current) drug therapy
CPT/HCPCS: 99284